=== PATIENT | female | born 1930 | race Caucasian/White ===

== ENCOUNTER 2018-06-06 11:29 | Inpatient (IN) | payer OTHER, BC ==
[2018-06-06] VITALS (15 sets, daily range): BP systolic 98–190; BP diastolic 52–102
[~2018-06-06] VITALS: Ht 152.4 cm; Wt 70.3 kg
[2018-06-06 12:14] LABS: URINE BILIRUBIN NEGATIVE (Negative); URINE BLOOD TRACE (Negative); URINE CLARITY CLEAR; URINE COLOR YELLOW; URINE GLUCOSE-RANDOM* 3+ (Negative); URINE KETONES 3+ (Negative); URINE LEUKOCYTES-REFLEX NEGATIVE (Negative); URINE NITRITE-REFLEX NEGATIVE (Negative); URINE PROTEIN (DIPSTICK) NEGATIVE (Negative); URINE SPECIFIC GRAVITY 1.015 (1.005-1.035); URINE UROBILINOGEN 0.2 E.U./dl (0.2-1.0)
[2018-06-06 12:36] LABS: ABSOLUTE NEUTROPHILS 5.5 thou/uL (1.4-8.2); BASOPHILS 0.5 % (0.0-2.0); HEMOGLOBIN 14.3 gm/dL (12.0-15.0); LYMPHOCYTES 15.4 % (24.0-44.0); MCH 31.1 pg (26.0-34.0); MCHC 33.3 g/dL (28.0-37.0); MCV 93.5 fL (80.0-100.0); MONOCYTES 4.4 % (1.0-8.0); PLATELET COUNT 174 thou/uL (150-400); POLYS 79.7 % (36.0-66.0); RDW 13.4 % (10.5-14.5)
[2018-06-06 12:55] LABS: ALBUMIN 4.3 g/dL (3.4-5.0); ANION GAP 20 mmol/L (7-16); BUN 24 mg/dL (7-18); CALCIUM 10.9 mg/dL (8.5-10.1); CHLORIDE 103 mmol/L (98-107); CO2 20 mmol/L (21-32); CREATININE 1.3 mg/dL (0.6-1.0); POTASSIUM 4.5 mmol/L (3.5-5.1); SGOT 20 U/L (15-37); SGPT 19 U/L (30-65); SODIUM 143 mmol/L (136-145); TOTAL BILIRUBIN 0.6 mg/dL (<0.1-1.0); TOTAL PROTEIN 7.9 g/dL (6.4-8.2); TROPONIN-I <0.06 ng/mL (<0.06)
[2018-06-06 12:57] LABS: GLUCOSE 584 mg/dL (74-106)
[2018-06-06] MEDS ORDERED: CLONIDINE HCL0.2 M2 PO (13:23)
[2018-06-06] MEDS ORDERED: SEROQUEL 25 MG25 M1 PO (13:23)
[2018-06-06] MEDS ORDERED: MOBIC7.5 MG PO (13:23)
[2018-06-06] MEDS ORDERED: ZANTAC 150MG T150 MG PO (13:24)
[2018-06-06] MEDS ORDERED: BYSTOLIC 5 MG5 M1 PO (13:24)
[2018-06-06] MEDS ORDERED: COZAAR 25 MG TA25 M2 PO (13:24)
[2018-06-06] MEDS ORDERED: AMLODIPINE BESY10 MG PO (13:24)
[2018-06-06] MEDS ORDERED: IMDUR 30 MG TAB30 M1 PO (13:24)
[2018-06-06] MEDS ORDERED: REMERON15 MG PO (13:25)
[2018-06-06] MEDS ORDERED: SYNTHROID100 MC1 PO (13:25)
[2018-06-06] MEDS ORDERED: ELIQUIS5 MG PO (13:25)
[2018-06-06] MEDS ORDERED: KLONOPIN0.5 MG PO (13:25)
[2018-06-06] MEDS ORDERED: CRESTOR10 MG PO (13:25)
[2018-06-06] MEDS ORDERED: BUSPIRONE HCL10 MG PO (13:25)
[2018-06-06] MEDS ORDERED: CENTRUM SILVER1 EAC4 PO (13:26)
[2018-06-06] MEDS ORDERED: ASPIR 8181 MG PO (13:26)
[2018-06-06] MEDS ORDERED: COLACE100 MG PO (13:26)
[2018-06-06] MEDS ORDERED: COLESTID1 GM PO (13:26)
[2018-06-06] MEDS ORDERED: TYLENOL EXTRA500 MG PO (13:26)
[2018-06-06] MEDS ORDERED: TYLENOL325 MG PO (13:27)
[2018-06-06] MEDS ORDERED: REGLAN 10 MG TA10 MG PO (13:27)
[2018-06-06] MEDS ORDERED: MUCINEX600 MG PO (13:27)
--- NOTE | 2018-06-06 13:54 | EKG ---
[place] [address] [facility] [place] [address] ELECTROCARDIOGRAM REPORT Name: IVETTE TATUM Room #: 170-9 ADM IN M.R.#: [id number] ������������������ Admission: 06/06/18 ������������������ Attend Phys: Shiv Schaeffer MD Discharge: ������������������ Date of : 34 Report #: [id number] ����������������������������������������������������������������� [id number] THIS REPORT FOR: //name// [facility] ED Test Date: 2018-06-06 Test Time: 11:40:47 Pat Name: IVETTE TATUM Department: Room: 170 Gender: F Welfare Manager: KKODJOVI : 1930 Requested By: Emmie Beckman Order Number: [id number] MD: Charles La Measurements Intervals [place] Rate: 82 P: -5 [place]: 189 QRS: -36 QRSD: 85 T: 17 QT: 379 QTc: 443 Interpretive Statements Sinus rhythm Inferior infarct, old Poor R wave progression No previous ECG available for comparison Electronically Signed On 06-06-2018 13:53:46 CDT by Charles La [email or web address] ��������������������������������������������� <ELECTRONICALLY SIGNED> ���������������������������������������� By: Charles La MD, [facility] ��������������������������������������������� 06/06/18 1353 1140 1140 Charles La MD, [facility] /EPI
[2018-06-06 14:04] LABS: BE(vivo) -7.4 mmol/L (-2 to +3); HCO3 18.2 mmol/L (22.0-26.0); PCO2 VENOUS 37.6 mmHg (41.0-51.0)
[2018-06-06 19:57] LABS: POTASSIUM 3.5 mmol/L (3.5-5.1)
--- NOTE | 2018-06-06 19:57 | NUR ---
CONSULTED TO PLACE ANOTHER IV AND DRAW LABS. PATIENT IS APPROPRIATE FOR MIDLINE PLACEMENT. DISCUSSED PROCEDURE WELL RISK AND BENIFTS WITH THE PATIENT FOR A VERBAL CONSENT. THE LUE BRACHIAL WAS WIDLEY PATENT. A #4F POWER MIDLINE WAS PLACED PER HOSPITAL POLICY. LINE WAS TRIMMED TO 18CM AND ADVANCED WITHOUT DIFFICULTY. LINE SECURED AND RELEASED FOR USE
[2018-06-06 20:03] LABS: ALBUMIN 3.9 g/dL (3.4-5.0); PHOSPHORUS 2.7 mg/dL (2.6-4.7)
--- NOTE | 2018-06-06 20:03 | NUR ---
PATIENT ADMITTED FROM THE ED DEPARTMENT. ALERT AND ORIENTED TO SELF ONLY, REORIENTED TO TIME AND SITUATION. PACED ON HELMET HAT BRIM CUTTER. ON ROOM AIR. HENDERSON INSERTED, ADEQUATE OUTPUT. BLOOD SUGAR MONITORED, INSULIN DRIP INITIATED PER DKA PROTOCOL. PATIENT AND FAMILY UPDATED ON THE PLAN OF CARE. NO SIGNS OF ACUTE DISTRESS NOTED AT THIS TIME. WILL CONTINUE TO MONITOR.
[2018-06-07] VITALS (30 sets, daily range): BP systolic 90–175; BP diastolic 40–87
[2018-06-07 04:36] LABS: ALBUMIN 3.4 g/dL (3.4-5.0); CALCIUM 9.1 mg/dL (8.5-10.1); CREATININE 0.8 mg/dL (0.6-1.0); MAGNESIUM 1.6 mg/dL (1.8-2.4); PHOSPHORUS 1.7 mg/dL (2.5-4.9)
[2018-06-07 04:42] LABS: POTASSIUM 2.9 mmol/L (3.5-5.1)
--- NOTE | 2018-06-07 06:34 | NUR ---
ASSUMED PATIENT CARE AT 1900. PATIENT AAOX1 TO SELF ONLY AND VERY ANXIOUS. PATIENT IN RESTRAINTS FOR SAFETY TO KEEP HER FROM PULLING OUT HER LINES/HENDERSON. PATIENT REMAINED HEMODYNAMICALLY STABLE AND NO SIGNS OF ACUTE DISTRESS WAS NOTED. PATIENT PROGRESSING TOWARD GOAL.
[2018-06-07 07:11] LABS: BASOPHILS 0.5 % (0.0-2.0); EOSINOPHILS 1.2 % (0.0-3.0); HEMATOCRIT 39.4 % (37.0-47.0); HEMOGLOBIN 13.3 gm/dL (12.0-15.0); LYMPHOCYTES 22.4 % (24.0-44.0); MCHC 33.8 g/dL (28.0-37.0); MCV 91.5 fL (80.0-100.0); MONOCYTES 9.9 % (1.0-8.0); PLATELET COUNT 139 thou/uL (150-400); RBC 4.31 mil/uL (4.20-5.00); RDW 13.2 % (10.5-14.5); WBC 7.6 thou/uL (4.0-11.0)
[2018-06-07 07:21] LABS: TOTAL BILIRUBIN 0.4 mg/dL (<0.1-1.0); TOTAL PROTEIN 6.5 g/dL (6.4-8.2)
[2018-06-07 11:54] LABS: MAGNESIUM 1.9 mg/dL (1.8-2.4); POTASSIUM 3.8 mmol/L (3.5-5.1)
--- NOTE | 2018-06-07 14:58 | NUR ---
TESSA MILLER: CASE OPENED FOR DC PLANNING. CLINICAL INFO REVIEWED. ADMITTED WITH DKA, NEW DEX DM TYPE 2. PT SLEEPING, MET WITH PT'S DPOA/DTR CHRIS AND PT'S SPOUSE RAZ. PT AND SPOUE LIVE IN [place] AT [facility] THEY PAY PRIVATELY FOR COMFORT KEEPERS TO SET UP PT'S MEDS AND DO DAILY AM CARE. PT HAS BAD OA OF KNEES BUT ABLE TO AMBULATE WITH [facility]. ALSO HAS TRANSPORT W/C. 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 NO PREVIOUS SKILLED REHAB STAYS. CHRIS INDICATES SHE AND PT'S SPOUSE UNDERSTAND PT NEEDS [facility] ASSISTED LIVING NEEDS ASSIST WITH ADLS AND MEDS, NOW WILL NEED BLOOD GLUCOSE MONITORING WELL. DTR INDICATES SHE HAS SPOKEN WITH [facility] AND NO PRESENT A.L. OPENINGS. DISCUSSED USE OF MEDICARE SKILLED REHAB BENEFIT WHILE LOOKING INTO [facility] RESOURCES FOR SKILLED REHAB, ASSISTED LIVING PROVIDED AND ENCOURAGE DTR TO REVIEW AND WILL TALK AGAIN TOMORROW AND SEND REFERRALS. PLCOURTNEYKLY DC PLAN, SKILELD REHAB STAY, WHILE DTR WORKS TOWARD [facility]
--- NOTE | 2018-06-07 19:15 | NUR ---
ASSUMED CARE AT 0900, REPORT RECEIVED FROM KALYANI IFNLEY RN. SHIFT SUMMARY: PT ALERT X 1, CALM, COOPERATIVE, EASILY REDIRECTED. PT HAS POOR MUSCLE STRENGTH WHEN WORKING WITH PT/OT. SR/APACED/AV PACED, TITRATING INSULIN GTT, TOLERATING LIQUIDS, HENDERSON WITH ADEQUATE URINE OUTPUT. DAUGHTER AND SPOUSE BOTH PRESENT, UPDATING ON PLAN OF CARE. SEE ASSESSMENTS/FLOWSHEETS FOR DETAILS. PT SLOWLY PROGRESSING.
[2018-06-08] VITALS (11 sets, daily range): BP systolic 108–186; BP diastolic 41–91
[2018-06-08 00:10] LABS: GLYCOHEMOGLOBIN (HGB A1C) 11.7 % (4.8-5.6)
--- NOTE | 2018-06-08 07:01 | NUR ---
ASSUMED PT CARE AT 1900 WITH NO SIGN OF DISTRESS NOTED, PT IS ALERT BUT CONFUSED, SCHEDULED MEDS ADMINISTERED TO PT. PT KEPT TRYING TO GET UP FROM BED. PT IS STBALE. MONITOR VITAL SIGNS, CONTINUE NURSING POC.
[2018-06-08 07:42] LABS: ALBUMIN 3.1 g/dL (3.4-5.0); CALCIUM 8.8 mg/dL (8.5-10.1); CREATININE 0.6 mg/dL (0.6-1.0); MAGNESIUM 1.6 mg/dL (1.8-2.4); POTASSIUM 4.1 mmol/L (3.5-5.1)
--- NOTE | 2018-06-08 14:30 | NUR ---
FAXED REFERRAL TO [facility] SPOKE WITH DYLON IN ADM. SHE RECEIVED REFERRAL AND CAN ACCEPT AT DISCHARGE. DCP TO FOLLOW.
--- NOTE | 2018-06-08 15:22 | NUR ---
SHIFT SUMMARY: ALERT TO PERSON, CONFUSED, SR/APACED/AVPACED, ROOM AIR, FEEDING SELF, POOR APPETITE, HENDERSON WITH ADEQUATE URINE OUTPUT. DAUGHTER AND SPOUSE PRESENT PROVIDING SUPPORT. SEE ASSESSMENT FOR DETAILS. PT SLOWLY PROGRESSING.
--- NOTE | 2018-06-08 15:29 | NUR ---
ATTEMPTED TO GIVE REPORT, UNAWARE OF TRANSFER, NO RN ASSIGNED.
--- NOTE | 2018-06-08 15:40 | NUR ---
REPORT GIVEN TO LEXX MCKEON. FOR PT SAFETY SHE WILL BE PLACED IN BED CLOSE TO NURSING DESK. CURRENTLY ANOTHER PT IN ROOM & WILL TRANSFER OUT OF ROOM. AWAITING CLEAN ROOM PRIOR TO TRANSFER.
--- NOTE | 2018-06-08 17:03 | NUR ---
FOLLOWING FOR DC PLANNING. CLINICAL INFO REVIEWED. MET WITH PT, SPOUSE AND DPOA/DTR CHRIS. PT IS PLEASANTLY CONFUSED. SPOKE WITH SPOUSE AND CHRIS ABOUT DC PLANNING. CHRIS OPEN TO SKILLED REHAB AT [facility] AND REFERRAL FAXED BY DC CLINIC SCHEDULER AND DIANE OSBORNE IN ADMISSIONS, FACILITY ABLE TO ACCEPT. PSYCH CONSULTED AND POSSIBILITY OF INPT SONAM PSYCH STAY TO ADJUST MEDICATIONS. PT AND SPOUSE LIVE IN I[place]L. AT [facility] BUT DTR NOW LOOKING INTO MEMORY CARE ASSISTED LIVING FOR PT, AND SPOUSE. REVIEWED RESOURCED GIVENT TO CHRIS YESTERDAY FOR ASSISTED LIVING AND SHE WILL CONTINUE TO CALL FACILITIES IN PT/SPOUSE'S KELLER RANGE.
--- NOTE | 2018-06-08 18:40 | NUR ---
DR. NARANJO PRESENT TO EVALUATE PT. TRANSFERRED TO [facility], ROOM #429 PER WHEELCHAIR. ACCOMPANIED BY RN. CHRIS, DAUGHTER AWARE OF TRANSFER.
--- NOTE | 2018-06-08 20:27 | NUR ---
PATIENT TRANSFERED TO ROOM 429 PER CHAIR. IS CONFUSED TO PLACE AND TIME. PLACED IN BED HAS A N IV IN LEFT UPPER ARM WHICH IS A MIDLINE INFUSING NS AT 75CC/HOUR. BED ALARM ON BECAUSE SHE TRIES TO CRAWL OUT OF BED. IS VERY IMPULSIVE.
--- NOTE | 2018-06-09 02:29 | NUR ---
PATIENT ARRIVED PER CHAIR AT 1845 FROM ICU. IS ALERT X 1. REMAINS CONFUSED ALL THE TIME. BED ALARM ON. LUNGS CTA AND DISM. REMAINS VERY IMPULSIVE ALL THE TIME. LEFT UPPER ARM HAS A MIDLINE IN IT AND HAS FLUIDS INFUSING WELL. AREA LOOKS HEALTHY. HAS A PACEMAKER IS V-PACED. TAKEN ALL HER MEDS AND WENT TO SLEEP. HAS DEMENTIA AND DR ARE TRYING TO ADJUST HER MEDICATION. CRIED SOME THIS START OF THIS SHIFT. PATIENT HAS A PACEMAKER. BLOOD SUAGAR AT 2148 WAS 180. INSULIN GIVEN PER ORDERS. CONT PLAN OF CARE.
[2018-06-09 04:23] VITALS: BP 134/49
[2018-06-09 08:09] VITALS: BP 146/59
[2018-06-09 09:17] VITALS: BP 146/59
--- NOTE | 2018-06-09 10:21 | NUR ---
PT A&OX1, CONFUSED. AMBULATES/TRANFERS WITH ASSIST X1. PT NOT IMPULSIVE AT THIS TIME THOUGH VERY FORGETFUL. MIDLINE INTACT IN MARY INFUSING NS @ 75ML/HR. DAUGHTER AT BEDSIDE. DAUGHTER STATES HER MOTHER HAS TROUBLE SWALLOWING PILLS AT TIMES. WILL NOTIFY HOSPITALIST FOR SPEECH EVAL. WILL CONT. TO MONITOR.
[2018-06-09 12:50] LABS: ALBUMIN 2.7 g/dL (3.4-5.0); CALCIUM 8.7 mg/dL (8.5-10.1); CREATININE 0.7 mg/dL (0.6-1.0); PHOSPHORUS 2.1 mg/dL (2.5-4.9); POTASSIUM 3.3 mmol/L (3.5-5.1)
--- NOTE | 2018-06-09 14:11 | NUR ---
Pt dcing to SNF at [facility] of today. They have arranged a w/c van for pickup at 3pm. Chart copy ready to be sent with the pt. Alondra Walker at bedside this am. Dc plan discussed at length. She is agreeable to the plan and is working on memory care [facility] options for longterm placement needs. Pt's spouse and sister at bedside this afternoon. All parties updated on dc time. DC digital media planner to fax the orders when completed and nursing to call report.
[2018-06-09] MEDS ORDERED: DEPAKOTE 250MG250 M1 PO (14:26)
[2018-06-09] MEDS ORDERED: NOVOLOG100 UNIT/1 SUBQ (14:26)
[2018-06-09] MEDS ORDERED: REMERON15 MG PO (14:26)
[2018-06-09] MEDS ORDERED: LANTUS100 UNIT/M SUBQ (14:26)
--- NOTE | 2018-06-09 15:06 | NUR ---
PT. DISCHARGING TODAY TO [facility]. FAXED DC ORDERS/SUMMARY TO FACILITY SPOKE WITH DYLON IN ADM SHE RECEIVED DC ORDERS AND ARRANGED TRANSPORT VIA VAN FOR 1500 TODAY. FAMILY NOTIFIED PER . UNIT NOTIFIED AND CHART COPY PER US. RN TO CALL REPORT TO [phone].
--- NOTE | 2018-06-09 15:46 | NUR ---
DC ORDERS RECEIVED. IV REMOVED FROMRAC, HENDERSON REMOVED WITH [facility]. REPORT CALLED TO JENNIFER AT [facility]. W/C VAN TRANSPORTATION IN TO JET OPERATOR PT AT THIS TIME.
== END 2018-06-09 15:49 | DRG 637 ==
LOC: ER 11:29 → ICU 13:11 → EROBS 13:11 → ICU 14:00 → 4E 06-08 20:02
PROVIDERS: Hospitalist; Nurse Practitioner Family; ADMIT Internal Medicine
PROC: 05HY33Z Insertion of Infusion Device into Upper Vein, Percutaneous Approach (ICD-10-PCS; principal; 2018-06-06)
DX: E11.10 Type 2 diabetes mellitus with ketoacidosis without coma (principal); G92 Toxic encephalopathy; N17.9 Acute kidney failure, unspecified; F02.81 Dementia in other diseases classified elsewhere, unspecified severity, with behavioral disturbance; F05 Delirium due to known physiological condition; I10 Essential (primary) hypertension; E03.9 Hypothyroidism, unspecified; E78.5 Hyperlipidemia, unspecified; G20 Parkinson's disease; G47.00 Insomnia, unspecified; W18.39XA Other fall on same level, initial encounter; I48.2 Chronic atrial fibrillation; E86.1 Hypovolemia; K21.9 Gastro-esophageal reflux disease without esophagitis; E87.6 Hypokalemia; F32.9 Major depressive disorder, single episode, unspecified; F41.9 Anxiety disorder, unspecified; E83.42 Hypomagnesemia; I25.10 Atherosclerotic heart disease of native coronary artery without angina pectoris; J44.9 Chronic obstructive pulmonary disease, unspecified; I48.0 Paroxysmal atrial fibrillation; Z95.5 Presence of coronary angioplasty implant and graft; Y93.89 Activity, other specified; Z95.0 Presence of cardiac pacemaker; Y92.89 Other specified places as the place of occurrence of the external cause; Y99.8 Other external cause status; Z90.11 Acquired absence of right breast and nipple; Z79.01 Long term (current) use of anticoagulants; Z79.82 Long term (current) use of aspirin; Z79.899 Other long term (current) drug therapy
CPT/HCPCS: 10078; 10203; 10783; 27000

== ENCOUNTER 2018-10-02 02:22 | Emergency (ER) | payer OTHER, BC ==
[~2018-10-02] VITALS: Ht 172.7 cm; Wt 67.1 kg
[~2018-10-02 02:22] MED LIST: AMLODIPINE BESY10 MG PO; ASPIR 8181 MG PO; BUSPIRONE HCL10 MG PO; BYSTOLIC 5 MG5 M1 PO; CENTRUM SILVER1 EAC4 PO; CLONIDINE HCL0.2 M2 PO; COLACE100 MG PO; COLESTID1 GM PO; COZAAR 25 MG TA25 M2 PO; CRESTOR10 MG PO; DEPAKOTE 250MG250 M1 PO; ELIQUIS5 MG PO; IMDUR 30 MG TAB30 M1 PO; KLONOPIN0.5 MG PO; LANTUS100 UNIT/M SUBQ; MOBIC7.5 MG PO; MUCINEX600 MG PO; NOVOLOG100 UNIT/1 SUBQ; REGLAN 10 MG TA10 MG PO; REMERON15 MG PO; SEROQUEL 25 MG25 M1 PO; SYNTHROID100 MC1 PO; TYLENOL EXTRA500 MG PO; TYLENOL325 MG PO; ZANTAC 150MG T150 MG PO
[2018-10-02] MEDS ORDERED: BYSTOLIC 5 MG5 M1 PO (02:52)
[2018-10-02] MEDS ORDERED: BUSPIRONE HCL10 MG PO (02:52)
[2018-10-02] MEDS ORDERED: DEPAKOTE 250MG250 M1 PO (02:55)
[2018-10-02] MEDS ORDERED: COZAAR 25 MG TA25 M1 PO (02:55)
[2018-10-02] MEDS ORDERED: MIRALAX17 GM PO (02:56)
[2018-10-02 04:21] LABS: MAGNESIUM 1.9 mg/dL (1.8-2.4); TROPONIN-I <0.06 ng/mL (<0.06)
[2018-10-02 04:27] LABS: ABSOLUTE NEUTROPHILS 2.1 thou/uL (1.4-8.2); BASOPHILS 0.8 % (0.0-2.0); EOSINOPHILS 0.8 % (0.0-3.0); HEMATOCRIT 43.2 % (37.0-47.0); HEMOGLOBIN 14.7 gm/dL (12.0-15.0); LYMPHOCYTES 49.1 % (24.0-44.0); MCV 91.4 fL (80.0-100.0); MONOCYTES 6.1 % (1.0-8.0); PLATELET COUNT 165 thou/uL (150-400); POLYS 43.2 % (36.0-66.0); RBC 4.72 mil/uL (4.20-5.00)
[2018-10-02 04:40] LABS: ALBUMIN 3.6 g/dL (3.4-5.0); CALCIUM 9.7 mg/dL (8.5-10.1); CREATININE 0.6 mg/dL (0.6-1.0); POTASSIUM 3.6 mmol/L (3.5-5.1); TOTAL BILIRUBIN 0.3 mg/dL (<0.1-1.0); TOTAL PROTEIN 7.3 g/dL (6.4-8.2)
[2018-10-02 07:02] VITALS: BP 183/97
--- NOTE | 2018-10-03 15:20 | EKG ---
[address] [address] [place] [address] ELECTROCARDIOGRAM REPORT Name: IVETTE TATUM Room #: DEP [facility]#: [id number] ������������������ Admission: 10/02/18 ������������������ Attend Phys: Discharge: 10/02/18 ������������������ Date of : 34 Report #: [id number] ����������������������������������������������������������������� [id number] THIS REPORT FOR: //name// [facility] ED Test Date: 2018-10-02 Test Time: 02:40:42 Pat Name: IVETTE TATUM Department: Room: Gender: F Paper Sales Manager: CYNTHIA : 1930 Requested By: Wilmer Brenner Order Number: [id number] MD: Charles La Measurements Intervals [place] Rate: 99 P: 54 [place]: 252 QRS: -21 QRSD: 126 T: 149 QT: 379 QTc: 487 Interpretive Statements Ventricular-paced complexes No further analysis attempted due to paced rhythm Compared to ECG 06/06/2018 11:40:47 Pacing is now present Electronically Signed On 10-03-2018 15:19:52 CDT by Charles La [email or web address] ��������������������������������������������� <ELECTRONICALLY SIGNED> ���������������������������������������� By: Charles La MD, [facility] ��������������������������������������������� 10/03/18 1519 9 Charles La MD, [facility] /EPI
== END 2018-10-02 07:42 | disposition home or self-care (01) ==
LOC: ER 02:22
PROVIDERS: Emergency Medicine
DX: R07.89 Other chest pain (principal); I10 Essential (primary) hypertension; E78.5 Hyperlipidemia, unspecified; E03.9 Hypothyroidism, unspecified; G47.00 Insomnia, unspecified; M19.90 Unspecified osteoarthritis, unspecified site; F03.91 Unspecified dementia, unspecified severity, with behavioral disturbance; Z90.11 Acquired absence of right breast and nipple; Z88.0 Allergy status to penicillin; Z95.0 Presence of cardiac pacemaker

== ENCOUNTER → 2019-11-18 | Outpatient (CLI) | payer OTHER, BC ==
[~2019-11-18] MED LIST changes: +COZAAR 25 MG TA25 M1 PO; +MIRALAX17 GM PO
== END ==
LOC: SJCVC 14:36
PROVIDERS: ATTEND Internal Medicine Cardiovascular Disease
DX: I47.1 Supraventricular tachycardia (principal); E78.5 Hyperlipidemia, unspecified; I49.5 Sick sinus syndrome; I48.91 Unspecified atrial fibrillation; I25.10 Atherosclerotic heart disease of native coronary artery without angina pectoris; I10 Essential (primary) hypertension; Z95.0 Presence of cardiac pacemaker

== ENCOUNTER → 2020-07-13 | Outpatient (CLI) | payer OTHER, BC | LOC: SJCVC 13:21 | PROVIDERS: ATTEND Internal Medicine Cardiovascular Disease | DX: I25.10 Atherosclerotic heart disease of native coronary artery without angina pectoris (principal); E78.5 Hyperlipidemia, unspecified; I49.5 Sick sinus syndrome; I48.0 Paroxysmal atrial fibrillation; G20 Parkinson's disease; J44.9 Chronic obstructive pulmonary disease, unspecified; I10 Essential (primary) hypertension; E11.9 Type 2 diabetes mellitus without complications; R41.3 Other amnesia; Z95.0 Presence of cardiac pacemaker; Z88.0 Allergy status to penicillin; Z79.4 Long term (current) use of insulin; Z79.899 Other long term (current) drug therapy; Z85.3 Personal history of malignant neoplasm of breast; Z86.16 Personal history of COVID-19 ==

== ENCOUNTER 2020-08-28 15:11 | Emergency (ER) | payer OTHER, BC ==
[~2020-08-28] VITALS: Ht 175.3 cm; Wt 65.6 kg
--- NOTE | ~2020-08-28 | EMS ---
[address] [address] EMS Patient Care Report Name: IVETTE TATUM Room #: PRE M.R.#: [id number] Admission: Attend Phys: Discharge: Date of : 32 Report #: [id number] THIS REPORT FOR: //name// Report Transmitted: 08/28/2020 15:09 EMS Care Summary [facility] MED-ACT Incident [id number] @ 08/28/2020 14:22 Incident Location [address] [place] [address] Patient IVETTE TATUM Female, 89 Years 1930 Patient Address [address] [place] [address] Patient History Dementia,Hypertension (HTN),Pacemaker/AICD,Hyperlipidemia,Gastro-Esophageal Reflux Disease (GERD),Type 2 Diabetes, Patient Allergies Sulfa, Patient Medications Polyethlene Glycol, Risperidone, Metoprolol, Diclofenac, Mirtazapine, Amlodipine, Acetaminophen, Levothyroxine, Losartan, Buspirone, Chief Complaint "She isn't responding like normal." Disposition Transported No Lights/[place] Dispatch Reason Stroke/CVA Transported To [facility] Narrative [address] [address] EMS Patient Care Report Name: IVETTE TATUM Room #: PRE Bravo#: [id number] Admission: Attend Phys: Discharge: Date of : 32 Report #: [id number] History: Staff on scene reports the pt was last seen normal at approximately 1300. Staff report the pt has a history of dementia, but she is normally A&Ox1 and will converse and make her needs known. Staff reports they they came in this afternoon and found the pt in bed and lethargic. Staff reports the pt's eyes were open, but they could not get her to respond to verbal stimuli. Pt does not initially note any complaints, and will only converse with EMS in short 1-2 word sentences. Staff denies any recent illness, N/V/D, or fevers on behalf of the patient. No other complaints noted at this time. Assessment: Pt was found laying supine in bed in the company of Q33 and facility staff. Pt airway patent. Pt breathing adequate and non-labored. Pt radial pulses strong and regular. Pt did not appear to be in any acute distress. PHCSS negative. See assessment tab for detailed physical exam findings and pertinent negatives. Treatment: Primary. VS. HPI. PMH. Physical exam. PHCSS. Pt moved via sheet drag to EMS stretcher. Pt moved via stretcher to ambulance. IV attempt x1 unsuccessful. 12-lead ECG. Transport: En route, continue with on-going assessment. Biocom to [facility]. Pt complained during transport that "my lungs hurt." Pt reports pain on palpation of her chest wall. No other changes noted to pt's condition during transport. Pt VS remained stable. Destination: Pt was brought via stretcher to ED room 8. Pt moved via sheet drag to hospital bed. Report provided to attending RN. Staff signed for patient. Care transferred. Initial Vitals @14:45P: 90,BP: 123/72, @14:53P: 118,BP: 124/61,SpO2: 92, @14:48P: 83,SpO2: 92,ID Suspected: false @15:04P: 113,R: 18,BP: 117/75,GCS: 14,SpO2: 92,Revised Trauma: 12, @PTAP: 79,R: 16,BP: 119/66,Pain: 0/10,GCS: 14,Temp: 98.1F,Glucose: 185,SpO2: 94,Revised Trauma: 12, Assessments @14:50MENTAL:Confused,Time Oriented,SKIN:HEENT:Head/Face: No Abnormalities,LUNG SOUNDS:ABDOMEN:PELVIS//GI:EXTREMITIES:Left Arm: No Abnormalities,Right Arm: No Abnormalities,PULSE:NEURO: Impression Altered Mental Status Procedures [address] [address] EMS Patient Care Report Name: IVETTE TATUM Room #: PRE ER M.R.#: [id number] Admission: Attend Phys: Discharge: Date of : 34 Report #: [id number] @14:49Saline Lock cc (20 ga) Site: Forearm-RightResponse: UnchangedFailed@14:4812-Lead ECG Timeline CERTIFIED ENERGY MANAGER,BP: 119/66 M,PULSE: 79,RR: 16 R,SPO2: 94 Ox,ETCO2: ,B,PAIN: 0,GCS: 14, 14:19,Call Received 14:19,Psap Call 14:22,Dispatched 14:23,En Route 14:30,On Scene 14:32,At Patient 14:45,BP: 123/72 M,PULSE: 90,RR: R,SPO2: Ox,ETCO2: ,BG: ,PAIN: ,GCS: , 14:48,12-Lead ECG, 14:48,BP: / M,PULSE: 83,RR: R,SPO2: 92 Ox,ETCO2: ,BG: ,PAIN: ,GCS: , 14:49,Saline Lock cc 20 ga Site: Forearm-Right,Response: UnchangedFailed, 14:49,Depart Scene 14:53,BP: 124/61 M,PULSE: 118,RR: R,SPO2: 92 Ox,ETCO2: ,BG: ,PAIN: ,GCS: , 15:04,BP: 117/75 M,PULSE: 113,RR: 18 R,SPO2: 92 Ox,ETCO2: ,BG: ,PAIN: ,GCS: 14, 15:06,At Destination 15:26,Call Closed Disclaimer v1.1 Copyright 2020 [employer] This EMS Care Summary contains data elements from the applicable legal record (which may be displayed differently). It is designed to provide pertinent information for the following purposes: continuity of care, clinical quality, and state data reporting. The complete legal record is available to ED staff and administrators of the receiving hospital in ES's Patient Tracker. All data is provided "as is."
[2020-08-28 16:02] LABS: ABSOLUTE NEUTROPHILS 3.7 thou/uL (1.4-8.2); BASOPHILS 0.4 % (0.0-2.0); EOSINOPHILS 0.3 % (0.0-3.0); HEMATOCRIT 41.2 % (37.0-47.0); HEMOGLOBIN 13.5 gm/dL (12.0-15.0); LYMPHOCYTES 15.4 % (24.0-44.0); MCH 30.2 pg (26.0-34.0); MCHC 32.8 g/dL (28.0-37.0); MCV 92.2 fL (80.0-100.0); MONOCYTES 21.2 % (1.0-8.0); PLATELET COUNT 149 thou/uL (150-400); POLYS 62.7 % (36.0-66.0); RBC 4.46 mil/uL (4.20-5.00); RDW 13.5 % (10.5-14.5); WBC 5.8 thou/uL (4.0-11.0)
[2020-08-28 16:11] LABS: CALCIUM 9.5 mg/dL (8.5-10.1); POTASSIUM 4.3 mmol/L (3.5-5.1)
[2020-08-28 16:17] LABS: ALBUMIN 3.3 g/dL (3.4-5.0); TOTAL BILIRUBIN 0.3 mg/dL (0.2-1.0); TOTAL PROTEIN 6.9 g/dL (6.4-8.2)
[2020-08-28 16:25] VITALS: BP 138/69
[2020-08-28] MEDS ORDERED: TRAMADOL 50 MG50 MG PO (16:44)
[2020-08-28] MEDS ORDERED: CERTAVITE SR-A1 EACH PO (16:45)
[2020-08-28] MEDS ORDERED: EXELON1 EACH TRANSDERM (16:47)
[2020-08-28] MEDS ORDERED: TOPROL XL100 MG PO (16:47)
[2020-08-28] MEDS ORDERED: RISPERDAL0.5 MG PO (16:48)
[2020-08-28] MEDS ORDERED: BASAGLAR K100 UNIT/1 SUBQ (16:48)
[2020-08-28 16:54] LABS: URINE BILIRUBIN NEGATIVE (Negative); URINE BLOOD NEGATIVE (Negative); URINE CLARITY CLEAR; URINE COLOR YELLOW; URINE GLUCOSE-RANDOM* NEGATIVE (Negative); URINE KETONES NEGATIVE (Negative); URINE LEUKOCYTES-REFLEX NEGATIVE (Negative); URINE NITRITE-REFLEX NEGATIVE (Negative); URINE PROTEIN (DIPSTICK) NEGATIVE (Negative); URINE SPECIFIC GRAVITY 1.015 (1.005-1.035); URINE UROBILINOGEN 0.2 E.U./dl (0.2-1.0)
--- NOTE | 2020-08-29 06:44 | EKG ---
[address] [employer] [address] ELECTROCARDIOGRAM REPORT Name: JOHN TATUMTIGRE Jackson [id number] Admission: 08/28/20 Attend Phys: Discharge: 08/28/20 Date of : 34 Report #: [id number] [facility] ED Test Date: 2020-08-28 Test Time: 15:19:49 Pat Name: IVETTE TATUM Department: Room: Gender: F Inspection Clerk: Devorah ANDINO : 1930 Requested By: Ike Morelos Order Number: [id number] MD: Alvaro Conway Measurements Intervals [place] Rate: 81 P: [place]: 231 QRS: 8 QRSD: 72 T: 62 QT: 358 QTc: 416 Interpretive Statements Atrial-paced rhythm ST elevation, consider inferior injury Baseline wander in lead(s) II,III,aVR,aVL,aVF,V1,V2,V3,V4,V5 Compared to ECG 10/02/2018 02:40:42 ST (T wave) deviation now present Myocardial infarct finding now present Electronically Signed On 08-29-2020 6:44:29 CDT by Alvaro Conway [email or web address] <ELECTRONICALLY SIGNED> By: Alvaro Conway MD, FAC 08/29/20 0644 1519 1519 Alvaro Conway MD, [facility] /EPI
== END 2020-08-28 17:41 ==
LOC: ER 15:11
PROVIDERS: Physician Assistant
DX: R41.82 Altered mental status, unspecified (principal); I10 Essential (primary) hypertension; F03.90 Unspecified dementia, unspecified severity, without behavioral disturbance, psychotic disturbance, mood disturbance, and anxiety; E03.9 Hypothyroidism, unspecified; E78.5 Hyperlipidemia, unspecified; Z79.899 Other long term (current) drug therapy; Z79.4 Long term (current) use of insulin; Z88.2 Allergy status to sulfonamides; Z88.0 Allergy status to penicillin; Z88.8 Allergy status to other drugs, medicaments and biological substances

== ENCOUNTER → 2021-04-16 | Outpatient (CLI) | payer OTHER, BC ==
[~2021-04-16] MED LIST changes: +BASAGLAR K100 UNIT/1 SUBQ; +CERTAVITE SR-A1 EACH PO; +EXELON1 EACH TRANSDERM; +RISPERDAL0.5 MG PO; +TOPROL XL100 MG PO; +TRAMADOL 50 MG50 MG PO
== END ==
LOC: SJCVC 13:34
PROVIDERS: ATTEND Internal Medicine Cardiovascular Disease
DX: I25.10 Atherosclerotic heart disease of native coronary artery without angina pectoris (principal); E78.5 Hyperlipidemia, unspecified; I49.5 Sick sinus syndrome; J44.9 Chronic obstructive pulmonary disease, unspecified; I10 Essential (primary) hypertension; E11.9 Type 2 diabetes mellitus without complications; R41.3 Other amnesia; Z95.0 Presence of cardiac pacemaker; Z79.4 Long term (current) use of insulin; Z88.8 Allergy status to other drugs, medicaments and biological substances; Z88.1 Allergy status to other antibiotic agents; Z79.899 Other long term (current) drug therapy